=== PATIENT | female | born 1995 | race Caucasian/White ===

== ENCOUNTER 2021-04-01 09:02 | Emergency (ER) | payer BC, SELFPAY ==
[2021-04-01 09:05] VITALS: BP 127/72; PULSE 84; RESP 18; TEMP 36.8; O2SAT 99; BMI 26.5
--- NOTE | 2021-04-01 09:20 | HMH.EDUTC ---
[facility] [place] Disposition Clinical Impression: Poison aileen dermatitis Disposition: Home, Self-Care Condition on Discharge: Good Instructions: DI for Poison Aileen Allergy, Prednisone Additional Instructions: Start oral steriods tomorrow Continue using over the counter Calamine lotion Oatmeal bathes may help to dry the rash Return if needed Straight to ER if any life threatening symptoms Bad tableReferrals: Sudhakar Campbell [Primary Care Provider] - Time of Disposition: 09:31 Medical Decision Making - Sourav Inquiry Pt receiving controlled substance: No Sourav was queried for this patient: No Vital Signs: 04/01/21 09:05 04/01/21 09:34 Temperature 98.2 F 98.2 F Temperature Source Oral Pulse Rate 84 Pulse Rate [Right Brachial] 84 Respiratory Rate 18 18 Blood Pressure 127/72 Blood Pressure [Right Arm] 127/72 Blood Pressure Mean [Right Arm] 90 Blood Pressure Source [Right Arm] Automatic Cuff Blood Pressure Position [Right Arm] Sitting 02 Sat by Pulse Oximetry 99 Oxygen Delivery Method Room Air Orders (Tests/Meds): ED MEDICATIONS Discontinued Medications Generic Name Dose Route Start Last Admin Trade Name Michele PRN Reason Stop Dose Admin Methylprednisolone Sodium Succinate 125 mg 04/01/21 09:26 04/01/21 09:29 Methylprednisolone Sod Succ 125mg Vial IM 04/01/21 09:27 125 mg ONCE [address] [facility] [place] HPI - General Stated complaint: poison aileen Time Seen by Provider: 04/01/21 09:20 Mode of Arrival: Ambulatory Source of Information: Patient Limitations: No Limitations Description of Symptoms (Recalled from Triage Doc. by RN): PATIENT C/O POISON AILEEN TO NECK, ARMS, LEGS X 1 WEEK HEENT Symptoms (Recalled from RN notes): No Resp Symptoms (Recalled from RN notes): No Skin Symptoms (Recalled from RN notes): Yes MS Symptoms (Recalled from RN notes): No Functional Status (Recalled from RN notes): WNL - History of Present Illness Provider Complaint: Patient states that she cleaned off her fence last week and got into poison aileen States that she has tried to use over the counter methods but it has continued to spread States that it is no on her neck and starting on her face, both arms, legs and groin area - Related Data Previous Rx's Medication Instructions Recorded predniSONE [Prednisone 10mg Tab 10 mg PO UD DOSE PK 6 Days #21 tab 04/01/21 Dose-Pack] Allergies Allergy/AdvReac Type Severity Reaction Status Date / Time No Known Allergies Allergy Verified 04/01/21 09:18 - Worker's Comp Is this a Worker's Comp case?: No [facility] History - Hepatitis A Screen Drug use history?: No High risk sexual behaviors?: No History of sexually transmitted infection?: No Currently employed?: No Childcare worker?: No Do you have indoor plumbing?: Yes Do you have electricity?: Yes Attestation statement:: This patient has been screened for Hepatitis A risk factors. I have reviewed the patient's past medical history: Yes ROS Obtained: Yes All systems reviewed & no additional complaints, Yes Systems reviewed as appropriate & no additional complaints - Constitutional Constitutional: Reports system reviewed and no additional complaints, except as docu, Denies body ache, Denies chills, Denies fever(s) - ENT Ears, Nose, Mouth, and Throat: Reports system reviewed and no additional complaints, except as docu - Cardiovascular Cardiovascular: Reports system reviewed and no additional complaints, except as docu - Respiratory Respiratory: Reports system reviewed and no additional complaints, except as docu - Gastrointestinal Gastrointestingal: Reports: system reviewed and no additional complaints, except as docu - Musculoskeletal Musculoskeletal: Reports system reviewed and no additional complaints, except as docu - Integumentary/Breasts Skin/Breast: Reports itching, Reports rash Physical Exam - General General appearance: alert, in no apparent distress - Respiratory Respir
[2021-04-01 09:34] VITALS: BP 127/72; PULSE 84; RESP 18; TEMP 36.8; O2SAT 99
== END 2021-04-01 09:44 | disposition home or self-care (01) ==
PROVIDERS: Emergency Provider Nurse Practitioner; PCP Internal Medicine
DX: L23.7 Allergic contact dermatitis due to plants, except food (principal)
CPT/HCPCS: 96372; 99202; G0463

== ENCOUNTER 2024-05-02 12:44 | Emergency (ER) | payer BC, SELFPAY ==
[2024-05-02 12:59] VITALS: BP 160/87; PULSE 107; RESP 16; TEMP 36.6; O2SAT 100; BMI 24.7
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
[2024-05-02] MEDS: TET/DIPHTH/PERT-ADULT 0.5ML SYRINGE 0.5 ML IM (13:29)
[2024-05-02 13:46] VITALS: BP 160/87; PULSE 107; RESP 16; TEMP 36.6; O2SAT 100
== END 2024-05-02 13:47 | disposition home or self-care (01) ==
PROVIDERS: Emergency Provider Nurse Practitioner; PCP Nurse Practitioner
DX: S01.80XA Unspecified open wound of other part of head, initial encounter (principal); W22.8XXA Striking against or struck by other objects, initial encounter
CPT/HCPCS: 12011; 90471; 90715; 99214; G0382

== ENCOUNTER 2024-05-29 10:52 | Emergency (ER) | payer BC, SELFPAY ==
[2024-05-29 10:59] VITALS: BP 126/71; PULSE 64; RESP 20; TEMP 36.6; O2SAT 100; BMI 24.0
--- NOTE | 2024-05-29 11:02 | EXP.UTC ---
Discharge Plan Disposition Patient Disposition: Home, Self-Care Condition: Good Prescriptions Prescriptions: New [id number]-[id number]-OB 3.5-10,000-1 mg/mL-unit/mL-% solution 4 drp Ear-Right Q8H 7 Days Qty: 10 0RF amoxicillin 875 mg tablet 875 mg PO Q12H Qty: 20 0RF Referrals Follow up/Referrals: Karina Almeida APRN [Primary Care Provider] - See instructions Activity Restrictions/Add. Instructions Additional Instructions/Restrictions: Use the ear drops as directed in your right ear. If the ear drops are very expensive, have the pharmacist call me because there should be cheaper alternatives. Take tylenol or ibuprofen if you have some ear pain. Follow up accordingly if your ear pain worsens instead of gets better. Take the oral medications as directed. Follow up with your regular doctor. GO TO THE ER FOR ANY WORSENING SYMPTOMS Clinical Impressions Clinical Impression: External otitis of right ear, Right ear impacted cerumen Instructions Patient Instructions: How to Instill Ear Drops, DI for Cerumen Impaction, Neomycin, Polymyxin, and Hydrocortisone Otic Print Language Print Language: Ivorian Discharge ED Provider: Jonny Naidu [facility] [place] General Stated complaint: pain in R ear Mode of Arrival: Ambulatory Source of Information: Patient Time Seen by Provider: 05/29/24 11:02 Description of Symptoms (Recalled from Triage Doc. by RN): RIGHT EAR PAIN, HEARING LOSS AND RINGING HEENT Symptoms (Recalled from RN notes): Yes Resp Symptoms (Recalled from RN notes): No Skin Symptoms (Recalled from RN notes): No MS Symptoms (Recalled from RN notes): No Functional Status (Recalled from RN notes): WNL Related Data Previous Rx's ?Medication ?Instructions ?Recorded amoxicillin 875 mg tablet 875 mg PO Q12H #20 tabs 05/29/24 myrmgclu-ocsqjdvdg-[id number] 3.5 4 drp Ear-Right Q8H 7 days #10 mL 05/29/24 mg/mL-10,000 unit/mL-1 % ear solution Allergies Allergy/AdvReac Type Severity Reaction Status Date / Time No Known Allergies Allergy Verified 04/01/21 09:18 Worker's Comp Is this a Worker's Comp case?: No [facility] Disclaimer: The information contained in this section may have been updated after the patient was seen, as this information can be updated by other users. Social History (Updated 05/02/24 @ 13:35 by Remedios Yousif APRN) Smoking Status: Unknown if ever smoked alcohol intake: never current occupational status: employed Travel in the last 8 weeks: None ROS Obtained: Yes All systems reviewed & no additional complaints except as documented Constitutional Constitutional: Denies chills, Denies fever(s) and Reports poor appetite Eyes Eyes: Denies eye discharge ENT Ears, Nose, Mouth, and Throat: Reports as per HPI, Denies dizziness, Denies ear discharge, Reports otalgia, Denies hearing loss, Denies sinus pain and Denies sore throat Cardiovascular Cardiovascular: Denies chest pain and Denies dyspnea Respiratory Respiratory: Denies chest congestion, Reports cough and Denies dyspnea Gastrointestinal Gastrointestingal: Denies abdominal pain, diarrhea, nausea or vomiting Musculoskeletal Musculoskeletal: Denies arthralgias Integumentary/Breasts Skin/Breast: Denies rash Neurologic Neurologic: Denies dizziness Physical Exam General General appearance: alert and in no apparent distress Head Head exam: atraumatic, normocephalic and normal inspection Eye Eye exam: Present normal appearance, PERRL and EOMI ENT ENT exam: Present normal oropharynx, mucous membranes moist and normal external ear exam Expanded ENT Exam TM/Canal exam: Right TM: cerumen impaction and Bilateral TM: erythema Nose exam: Absent sinus tenderness Nasal speculum exam: Bilateral: normal Mouth exam: Present normal external inspection; Absent drooling Teeth exam: Present normal inspection Throat exam: Present normal inspection Neck Neck exam: Present normal inspection, full ROM and trachea midline; Absent meningismus or lymphadenopathy Chest Chest inspection: Present normal inspection and symmetric chest wall rise; Absent tenderness Respiratory Respiratory exam: Present normal lung sounds bilaterally; Absent respiratory distress Cardiovascular Cardiovascular exam: Present regular rate and normal rhythm; Absent JVD Abdominal Exam Abdominal exam: Present soft and normal bowel sounds; Absent distention, tenderness or guarding Extremities Exam Extremities exam: Present normal inspection, full ROM and normal capillary refill; Absent calf tenderness Back Exam Back exam: Present normal inspection; Absent tenderness Neurological Exam Neurological exam: Present alert and oriented X3 Psychiatric Psychiatric exam: Present normal affect and normal mood Skin Skin exam: Present warm, dry, intact and normal color Lymphatic Lymphatic Findings: no adenopathy Medical Decision Making Medical Records Medical records reviewed: No I reviewed the patient's medical records. Screening: Per USPSTF and CDC recommendations, given the prevalence of disease in our region, it is our hospital?s policy to screen for HIV and viral Hepatitis for all patients aged 18 and over and those with ongoing risk factors. Sourav Inquiry Pt receiving controlled substance: No Vital Signs: 05/29/24 10:59 Temperature 97.9 F Temperature Source Oral Pulse Rate [Left Radial] 64 Respiratory Rate 20 Blood Pressure [Left Arm] 126/71 Blood Pressure Mean [Left Arm] 89 02 Sat by Pulse Oximetry 100 Procedures Risk/Benefits of Procedure(s) Were Explained: Yes Ear Wax Removal Right Ear: Results: Re-examined: cerumen removed completely TM Examination: TM(s) intact, normal appearance Ear Canal Exam: atraumatic Patient Tolerated Procedure: well and no complications Complications: no problems Technique: ear canal irrigated
[2024-05-29 11:34] VITALS: BP 126/71; PULSE 64; RESP 20; TEMP 36.6
== END 2024-05-29 11:34 | disposition home or self-care (01) ==
PROVIDERS: Emergency Provider Nurse Practitioner Family; PCP Nurse Practitioner
DX: H66.91 Otitis media, unspecified, right ear (principal)
CPT/HCPCS: 99212; G0381